=== PATIENT | female | born 1930 | race Hispanic/Latino ===

== ENCOUNTER 2018-02-28 20:19 | Inpatient (IN) | payer MEDICARE ==
[~2018-02-28] VITALS: Ht 152.4 cm; Wt 71.2 kg
[2018-02-28 20:42] LABS: BASOPHILS % (AUTO) 2.4 % (0.0-5.0); EOSINOPHILS % (AUTO) 3.1 % (0.0-8.0); HEMATOCRIT 34.1 % (36-48); LYMPHOCYTES % (AUTO) 40.4 % (21.0-51.0); MEAN CORPUSCULAR HGB CONC 34.2 g/dL (32.0-36.0); MEAN CORPUSCULAR VOLUME 87.7 fL (79-99); MONOCYTES % (AUTO) 7.9 % (3.0-13.0); NEUTROPHILS % (AUTO) 46.2 % (40.0-77.0); NUCLEATED RED BLOOD CELLS 0.1 % (0.0-0.19); PLATELET COUNT (AUTO) 238 K/uL (130-400); RED BLOOD CELL COUNT(AUTO) 3.89 MIL/uL (4.00-5.50); RED CELL DISTRIBUTION WIDTH 13.9 % (11.0-15.5); WHITE BLOOD COUNT (AUTO) 5.3 K/uL (4.8-10.8)
[2018-02-28 20:51] LABS: CREATININE 1.7 mg/dL (0.5-1.5); POTASSIUM 3.9 mmol/L (3.5-5.1)
[2018-02-28 20:53] LABS: INR 1.03 (0.85-1.15); PARTIAL THROMBOPLASTIN TIME 27.6 SEC (26.3-35.5); PROTHROMBIN TIME 10.8 SEC (9.6-11.6)
[2018-02-28 20:55] LABS: BILIRUBIN,TOTAL 0.5 mg/dL (0.2-1.0); TOTAL PROTEIN, SERUM 7.5 g/dL (6.0-8.3)
[2018-02-28] MEDS ORDERED: ASPIRIN 81MG TAB.CHEW ONE (21:18)
[2018-02-28] MEDS ORDERED: MORPHINE SULFATE 4 MG/1ML SYG ONE (22:05)
[2018-02-28] MEDS ORDERED: ONDANSETRON HCL MDV 20ML 2 MG/ML VIAL ONE (22:05)
[2018-02-28] MEDS ORDERED: SODIUM CHLORIDE 0.9% 250 ML IV ONE (22:06)
[2018-02-28] MEDS ORDERED: CLOPIDOGREL BISULFATE 300 MG TAB ONE (23:31)
[2018-02-28] MEDS ORDERED: HEPARIN SODIUM 5000UNIT/ML 1ML VIAL ONE (23:31)
[2018-02-28] MEDS ORDERED: NITROGLYCERIN 1GM/1 INCH PACKET TD ONE (23:32)
[2018-03-01] VITALS (44 sets, daily range): BP systolic 36–133; BP diastolic 22–103
[2018-03-01] MEDS ORDERED: ONDANSETRON HCL MDV 20ML 2 MG/ML VIAL IVP PRN (00:45)
[2018-03-01] MEDS ORDERED: HEPARIN 25000 UNITS/250 ML D5W 250 ML IV PRN (00:45)
[2018-03-01] MEDS: MORPHINE SULFATE 4 MG/1ML SYG IVP PRN (02:47)
[2018-03-01] MEDS ORDERED: AMLO1CAP11 PO (03:34)
[2018-03-01] MEDS ORDERED: QUET25TA74 PO (03:35)
[2018-03-01] MEDS ORDERED: FURO40TA7 PO (03:36)
[2018-03-01] MEDS ORDERED: OMEP40CA37 PO (03:36)
[2018-03-01] MEDS ORDERED: DIVA-76 PO (03:37)
[2018-03-01] MEDS ORDERED: NITROGLYCERIN 1GM/1 INCH PACKET TD SCH (06:00)
[2018-03-01 06:14] LABS: BASOPHILS % (AUTO) 0.8 % (0.0-5.0); EOSINOPHILS % (AUTO) 3.6 % (0.0-8.0); HEMATOCRIT 31.4 % (36-48); MEAN CORPUSCULAR HEMOGLOBIN 29.6 pg (27.0-33.0); MEAN CORPUSCULAR HGB CONC 33.6 g/dL (32.0-36.0); MEAN CORPUSCULAR VOLUME 87.8 fL (79-99); MONOCYTES % (AUTO) 8.6 % (3.0-13.0); PLATELET COUNT (AUTO) 197 K/uL (130-400); RED BLOOD CELL COUNT(AUTO) 3.58 MIL/uL (4.00-5.50); RED CELL DISTRIBUTION WIDTH 13.9 % (11.0-15.5); WHITE BLOOD COUNT (AUTO) 5.1 K/uL (4.8-10.8)
[2018-03-01 06:26] LABS: INR 1.04 (0.85-1.15); PROTHROMBIN TIME 10.9 SEC (9.6-11.6)
[2018-03-01 06:29] LABS: ALBUMIN 2.8 g/dL (3.5-5.0); BILIRUBIN,TOTAL 0.5 mg/dL (0.2-1.0); CREATININE 1.5 mg/dL (0.5-1.5); POTASSIUM 3.7 mmol/L (3.5-5.1); TOTAL PROTEIN, SERUM 7.2 g/dL (6.0-8.3)
[2018-03-01 07:27] LABS: PARTIAL THROMBOPLASTIN TIME 92.7 SEC (26.3-35.5)
[2018-03-01] MEDS ORDERED: SODIUM CHLORIDE 0.9% 1000ML 1,000 ML IV SCH (07:30)
[2018-03-01] MEDS: NITROGLYCERIN 1GM/1 INCH PACKET TD SCH ×3 (07:31→19:31)
[2018-03-01] MEDS ORDERED: HEPARIN SODIUM 1000UNIT/ML 10ML VIAL ONE (13:35)
[2018-03-01] MEDS ORDERED: SODIUM BICARB 50MEQ 50ML VIAL ONE (13:35)
[2018-03-01] MEDS ORDERED: ISOVUE-300 100 ML VIAL IV ONE (13:36)
[2018-03-01] MEDS ORDERED: NITROGLYCERIN 5 MG/ML 10 ML VIAL IV ONE (13:36)
[2018-03-01] MEDS ORDERED: LIDOCAINE HCL 2% 20ML ONE (13:36)
[2018-03-01] MEDS ORDERED: MEPERIDINE-PF 25 MG/ML SYG ONE (13:45)
[2018-03-01] MEDS ORDERED: MIDAZOLAM HCL 1 MG/ML 2ML VIAL ONE (13:45)
[2018-03-01] MEDS ORDERED: HEPARIN 25000 UNITS/250 ML D5W 250 ML IV ONE (15:37)
[2018-03-01] MEDS ORDERED: ASPIRIN 81MG TAB.CHEW ONE (15:38)
[2018-03-01] MEDS ORDERED: CLOPIDOGREL BISULFATE 75 MG TAB ONE (15:38)
[2018-03-01] MEDS: SODIUM CHLORIDE 0.9% 1000ML 1,000 ML IV SCH (16:04)
[2018-03-01 20:05] LABS: HEMATOCRIT 25.6 % (36-48)
[2018-03-01] MEDS ORDERED: IOPAMIDOL-370 75 ML VIAL IV ONE (23:49)
[2018-03-02] VITALS (60 sets, daily range): BP systolic 75–141; BP diastolic 28–120
[2018-03-02 01:06] LABS: INR 1.06 (0.85-1.15); PARTIAL THROMBOPLASTIN TIME 26.1 SEC (26.3-35.5); PROTHROMBIN TIME 11.1 SEC (9.6-11.6)
[2018-03-02] MEDS: NITROGLYCERIN 1GM/1 INCH PACKET TD SCH ×4 (01:31→19:31)
[2018-03-02 03:59] LABS: HEMATOCRIT 21.8 % (36-48); MEAN CORPUSCULAR HEMOGLOBIN 30.8 pg (27.0-33.0); MEAN CORPUSCULAR HGB CONC 35.6 g/dL (32.0-36.0); MEAN CORPUSCULAR VOLUME 86.5 fL (79-99); PLATELET COUNT (AUTO) 257 K/uL (130-400); RED BLOOD CELL COUNT(AUTO) 2.52 MIL/uL (4.00-5.50); RED CELL DISTRIBUTION WIDTH 14.6 % (11.0-15.5)
[2018-03-02 04:05] LABS: CREATININE 1.2 mg/dL (0.5-1.5); POTASSIUM 4.2 mmol/L (3.5-5.1)
[2018-03-02] MEDS: SODIUM CHLORIDE 0.9% 1000ML 1,000 ML IV SCH (05:24)
[2018-03-02] MEDS ORDERED: HALOPERIDOL LACTATE 5 MG/ML VIAL ONE (06:38)
[2018-03-02] MEDS ORDERED: HALOPERIDOL LACTATE 5 MG/ML VIAL IV PRN (06:50)
[2018-03-02] MEDS ORDERED: ASPIRIN 81MG TAB.CHEW PO SCH (09:00)
[2018-03-02] MEDS: CLOPIDOGREL BISULFATE 75 MG TAB PO SCH (09:00)
[2018-03-02] MEDS: CALCIUM GLUCONATE 1 GM/10 ML VIAL IV SCH (09:50)
[2018-03-02] MEDS: CEFTRIAXONE SODIUM 1 GM IV SCH (09:50)
[2018-03-02] MEDS ORDERED: CEFAZOLIN SODIUM 1 GM VIAL IVP SCH (11:30)
[2018-03-02] MEDS ORDERED: CEFAZOLIN 1GM / D5W 50ML 50 ML IV ONE (11:30)
[2018-03-02] MEDS ORDERED: CEFUROXIME 1.5GM+NS 100ML 100 ML IV SCH (12:00)
[2018-03-02] MEDS: CEFUROXIME SODIUM 1.5 GM VIAL IVP SCH ×2 (12:15→15:45)
[2018-03-02 14:05] LABS: HEMATOCRIT 27.6 % (36-48)
[2018-03-02] MEDS ORDERED: BACITRACIN 50,000 UNIT VIAL ONE (15:07)
[2018-03-02] MEDS ORDERED: KETAMINE HCL 100 MG/ML 5ML VIAL IJ ONE (15:17)
[2018-03-02] MEDS ORDERED: PHENYLEPHRINE HCL 10 MG/ML 1ML VIAL IV ONE (15:17)
[2018-03-02] MEDS ORDERED: FENTANYL CITRATE PF 50 MCG/1 ML 5ML AMP IV ONE (15:21)
[2018-03-02] MEDS ORDERED: PROPOFOL 10 MG/ML 20ML VIAL IV ONE (15:23)
[2018-03-02] MEDS ORDERED: THROMBIN-JMI 5000 UNIT/VIAL TP ONE (16:30)
[2018-03-02] MEDS ORDERED: OCTYL 2-CYANOACRYLATE 1 EACH TP ONE (17:00)
[2018-03-02 18:11] LABS: BASOPHILS % (AUTO) 0.5 % (0.0-5.0); EOSINOPHILS % (AUTO) 0.5 % (0.0-8.0); HEMATOCRIT 27.7 % (36-48); LYMPHOCYTES % (AUTO) 25.4 % (21.0-51.0); MEAN CORPUSCULAR HEMOGLOBIN 30.5 pg (27.0-33.0); MEAN CORPUSCULAR HGB CONC 34.8 g/dL (32.0-36.0); MEAN CORPUSCULAR VOLUME 87.5 fL (79-99); MONOCYTES % (AUTO) 10.1 % (3.0-13.0); NEUTROPHILS % (AUTO) 63.5 % (40.0-77.0); PLATELET COUNT (AUTO) 218 K/uL (130-400); RED BLOOD CELL COUNT(AUTO) 3.17 MIL/uL (4.00-5.50); RED CELL DISTRIBUTION WIDTH 14.7 % (11.0-15.5); WHITE BLOOD COUNT (AUTO) 7.8 K/uL (4.8-10.8)
[2018-03-02 18:21] LABS: ABG BASE EXCESS -6.1 mmol/L (-2.0-3.0); ABG HCO3 18.9 mmol/L (21.0-28.0); ABG PCO2 36 mmHg (32-45)
[2018-03-02] MEDS ORDERED: SODIUM BICARB 50MEQ 50ML VIAL ONE (18:26)
[2018-03-02] MEDS ORDERED: SODIUM BICARB 50MEQ 50ML VIAL IV ONE (18:30)
[2018-03-02 21:34] LABS: ABG HCO3 21.9 mmol/L (21.0-28.0); ABG OXYGEN SATURATION 94.9 % (95.0-99.0); ABG PCO2 35 mmHg (32-45)
[2018-03-02] MEDS ORDERED: SODIUM CHLORIDE 0.9% 1000ML 1,000 ML IV ONE (22:20)
[2018-03-03] VITALS (24 sets, daily range): BP systolic 116–150; BP diastolic 43–90
[2018-03-03] MEDS: MORPHINE SULFATE 4 MG/1ML SYG IVP PRN (00:22)
[2018-03-03] MEDS: NITROGLYCERIN 1GM/1 INCH PACKET TD SCH (01:31)
[2018-03-03 05:31] LABS: BASOPHILS % (AUTO) 0.4 % (0.0-5.0); HEMATOCRIT 28.4 % (36-48); LYMPHOCYTES % (AUTO) 17.3 % (21.0-51.0); MEAN CORPUSCULAR HGB CONC 34.6 g/dL (32.0-36.0); MEAN CORPUSCULAR VOLUME 86.7 fL (79-99); MONOCYTES % (AUTO) 9.1 % (3.0-13.0); NEUTROPHILS % (AUTO) 73.2 % (40.0-77.0); PLATELET COUNT (AUTO) 226 K/uL (130-400); RED BLOOD CELL COUNT(AUTO) 3.28 MIL/uL (4.00-5.50); RED CELL DISTRIBUTION WIDTH 14.7 % (11.0-15.5)
[2018-03-03 05:50] LABS: POTASSIUM 3.8 mmol/L (3.5-5.1)
[2018-03-03] MEDS: CALCIUM GLUCONATE 1 GM/10 ML VIAL IV SCH (07:44)
[2018-03-03] MEDS: CEFTRIAXONE SODIUM 1 GM IV SCH (08:16)
[2018-03-03] MEDS: RIVAROXABAN 15 MG TABLET PO SCH (08:16)
[2018-03-03] MEDS: CLOPIDOGREL BISULFATE 75 MG TAB PO SCH (08:16)
[2018-03-03] MEDS: CEFUROXIME SODIUM 1.5 GM VIAL IVP SCH (11:33)
[2018-03-04] VITALS (24 sets, daily range): BP systolic 106–145; BP diastolic 44–85
[2018-03-04] MEDS: METOPROLOL TARTRATE 25 MG TAB PO SCH ×4 (00:22→22:07)
[2018-03-04 05:24] LABS: HEMATOCRIT 25.5 % (36-48); MEAN CORPUSCULAR HGB CONC 35.5 g/dL (32.0-36.0); MEAN CORPUSCULAR VOLUME 87.4 fL (79-99); PLATELET COUNT (AUTO) 198 K/uL (130-400); RED BLOOD CELL COUNT(AUTO) 2.91 MIL/uL (4.00-5.50); RED CELL DISTRIBUTION WIDTH 14.2 % (11.0-15.5); WHITE BLOOD COUNT (AUTO) 10.5 K/uL (4.8-10.8)
[2018-03-04 05:36] LABS: CREATININE 0.9 mg/dL (0.5-1.5); POTASSIUM 3.6 mmol/L (3.5-5.1)
[2018-03-04] MEDS: RIVAROXABAN 15 MG TABLET PO SCH (08:23)
[2018-03-04] MEDS: CLOPIDOGREL BISULFATE 75 MG TAB PO SCH (08:24)
[2018-03-04] MEDS: CEFTRIAXONE SODIUM 1 GM IV SCH (08:24)
[2018-03-04] MEDS: MORPHINE SULFATE 4 MG/1ML SYG IVP PRN (10:12)
[2018-03-05] VITALS (16 sets, daily range): BP systolic 103–137; BP diastolic 40–86
[2018-03-05] MEDS: METOPROLOL TARTRATE 25 MG TAB PO SCH ×2 (08:35→21:46)
[2018-03-05] MEDS: CEFTRIAXONE SODIUM 1 GM IV SCH (08:36)
[2018-03-05] MEDS: RIVAROXABAN 15 MG TABLET PO SCH (08:36)
[2018-03-05] MEDS: CLOPIDOGREL BISULFATE 75 MG TAB PO SCH (08:36)
[2018-03-05] MEDS ORDERED: CALCIUM GLUCONATE 1 GM/10 ML VIAL IV SCH (11:45)
[2018-03-05] MEDS ORDERED: CALCIUM GLUCONATE 1 GM in SODIUM CHLORIDE 0.9% 50 ML IV SCH (12:00)
[2018-03-06 03:55] LABS: HEMATOCRIT 26.1 % (36-48); MEAN CORPUSCULAR HEMOGLOBIN 31.2 pg (27.0-33.0); MEAN CORPUSCULAR HGB CONC 35.5 g/dL (32.0-36.0); MEAN CORPUSCULAR VOLUME 88.1 fL (79-99); NUCLEATED RED BLOOD CELLS 0.1 % (0.0-0.19); PLATELET COUNT (AUTO) 233 K/uL (130-400); RED BLOOD CELL COUNT(AUTO) 2.96 MIL/uL (4.00-5.50); RED CELL DISTRIBUTION WIDTH 14.4 % (11.0-15.5); WHITE BLOOD COUNT (AUTO) 8.5 K/uL (4.8-10.8)
[2018-03-06 04:00] VITALS: BP 130/58
[2018-03-06 04:08] LABS: POTASSIUM 3.7 mmol/L (3.5-5.1)
[2018-03-06 07:31] VITALS: BP 144/71
[2018-03-06] MEDS: CLOPIDOGREL BISULFATE 75 MG TAB PO SCH (07:51)
[2018-03-06] MEDS: METOPROLOL TARTRATE 25 MG TAB PO SCH (07:51)
[2018-03-06] MEDS: RIVAROXABAN 15 MG TABLET PO SCH (07:51)
[2018-03-06] MEDS: CEFTRIAXONE SODIUM 1 GM IV SCH (07:51)
[2018-03-06 11:15] VITALS: BP 134/72
[2018-03-06 16:08] VITALS: BP 146/72
== END 2018-03-06 17:45 | DRG 252 ==
LOC: EDH 20:19 → EDHIP 23:35 → 2BH 03-01 02:37 → 2DH 03-05 15:33
PROVIDERS: ADMIT Family Medicine; ATTEND Family Medicine
PROC: 047L3DZ Dilation of Left Femoral Artery with Intraluminal Device, Percutaneous Approach (ICD-10-PCS; principal; 2018-03-01)
PROC: 047N3DZ Dilation of Left Popliteal Artery with Intraluminal Device, Percutaneous Approach (ICD-10-PCS; 2018-03-01)
PROC: 047Q3ZZ Dilation of Left Anterior Tibial Artery, Percutaneous Approach (ICD-10-PCS; 2018-03-01)
PROC: B4101ZZ Fluoroscopy of Abdominal Aorta using Low Osmolar Contrast (ICD-10-PCS; 2018-03-01)
PROC: B41G1ZZ Fluoroscopy of Left Lower Extremity Arteries using Low Osmolar Contrast (ICD-10-PCS; 2018-03-01)
PROC: 04QJ0ZZ Repair Left External Iliac Artery, Open Approach (ICD-10-PCS; 2018-03-02)
PROC: 30233L1 Transfusion of Nonautologous Fresh Plasma into Peripheral Vein, Percutaneous Approach (ICD-10-PCS; 2018-03-02)
PROC: 30233N1 Transfusion of Nonautologous Red Blood Cells into Peripheral Vein, Percutaneous Approach (ICD-10-PCS; 2018-03-02)
PROC: 30233R1 Transfusion of Nonautologous Platelets into Peripheral Vein, Percutaneous Approach (ICD-10-PCS; 2018-03-02)
PROC: 30233K1 Transfusion of Nonautologous Frozen Plasma into Peripheral Vein, Percutaneous Approach (ICD-10-PCS; 2018-03-02)
PROC: 04HJ33Z Insertion of Infusion Device into Left External Iliac Artery, Percutaneous Approach (ICD-10-PCS; 2018-03-02)
DX: I74.3 Embolism and thrombosis of arteries of the lower extremities (principal); K66.1 Hemoperitoneum; R57.8 Other shock; D62 Acute posthemorrhagic anemia; E11.22 Type 2 diabetes mellitus with diabetic chronic kidney disease; E83.51 Hypocalcemia; I99.8 Other disorder of circulatory system; I72.3 Aneurysm of iliac artery; I72.4 Aneurysm of artery of lower extremity; F03.90 Unspecified dementia, unspecified severity, without behavioral disturbance, psychotic disturbance, mood disturbance, and anxiety; M19.90 Unspecified osteoarthritis, unspecified site; E11.51 Type 2 diabetes mellitus with diabetic peripheral angiopathy without gangrene; E78.5 Hyperlipidemia, unspecified; I12.9 Hypertensive chronic kidney disease with stage 1 through stage 4 chronic kidney disease, or unspecified chronic kidney disease; I34.0 Nonrheumatic mitral (valve) insufficiency; I48.0 Paroxysmal atrial fibrillation; I51.3 Intracardiac thrombosis, not elsewhere classified; N18.9 Chronic kidney disease, unspecified; Z51.5 Encounter for palliative care; Z79.01 Long term (current) use of anticoagulants; Z86.73 Personal history of transient ischemic attack (TIA), and cerebral infarction without residual deficits
CPT/HCPCS: 36415; 36430; 37184; 37185; 37226; 37228; 70450; 71045; 74176; 74177; 75625; 75710; 76705; 80048; 80053; 82803; 82948; 83735; 85014; 85018; 85025; 85027; 85347; 85384; 85610; 85730; 86850; 86900; 86901; 86922; 86927; 93005; 93306; 93925; 93970; 97039; 99291; 99292; A4218; A4344; A4357; C1725; C1757; C1760; C1769; C1893; C1894; J0610; J0690; J0696; J0697; J1630; J1644; J2175; J2250; J2270; J2370; J2704; J3010; J3490; J7030; J7040; P9016; P9017; P9034; Q9967